=== PATIENT | male | born 1985 | race Caucasian/White ===

== ENCOUNTER 2017-09-18 14:54 | Emergency (ER) | payer SELFPAY ==
[2017-09-18 15:06] VITALS: BMI 33.3
--- NOTE | 2017-09-18 15:27 | C.PDOC ---
History Of Present Illness 32-year-old male, presents to the emergency department with complaints of a worsening rash around his neck for the past week. Patient notes swelling in both eyes for the past two-three days. Unknown sick contacts, Patient notes associated itching, and no relief with Claritin. DENIES NECKLACE USE OR KNOWN ALLERGEN CONTACT Time Seen by Provider: 09/18/17 15:17 Chief Complaint (Nursing): Abnormal Skin Integrity History Per: Patient History/Exam Limitations: no limitations Onset/Duration Of Symptoms: Days Current Symptoms Are (Timing): Still Present Past Medical History Reviewed: Historical Data, Nursing Documentation, Vital Signs Vital Signs: Last Vital Signs Temp 97.8 F 09/18/17 15:06 Pulse 97 H 09/18/17 15:06 Resp 20 09/18/17 15:06 BP 160/102 H 09/18/17 15:06 Pulse Ox 99 09/18/17 15:46 Family History: States: No Known Family Hx - Social History Hx Alcohol Use: Yes Hx Substance Use: No - Immunization History Hx Tetanus Toxoid Vaccination: No Hx Influenza Vaccination: No Hx Pneumococcal Vaccination: No Review Of Systems Except As Marked, All Systems Reviewed And Found Negative. Constitutional: Negative for: Fever, Chills Eyes: Positive for: Other (swelling) Cardiovascular: Negative for: Chest Pain Respiratory: Negative for: Shortness of Breath Gastrointestinal: Negative for: Nausea, Vomiting Skin: Positive for: Rash Neurological: Negative for: Weakness, Numbness Physical Exam - Physical Exam Appears: Non-toxic, No Acute Distress Skin: Warm, Dry, Other (hives with excoriation on neck) Head: Normacephalic Eye(s): bilateral: Other (swelling, angioedema) Nose: Normal Oral Mucosa: Moist Lips: Normal Appearing Neck: Normal ROM Chest: Symmetrical Cardiovascular: Rhythm Regular, No Murmur Respiratory: Normal Breath Sounds, No Accessory Muscle Use Extremity: Normal ROM Neurological/Psych: Oriented x3, Normal Speech ED Course And Treatment O2 Sat by Pulse Oximetry: 99 (on RA) Pulse Ox Interpretation: Normal Reevaluation Time: 17:17 Reassessment Condition: Improved Disposition Counseled Patient/Family Regarding: Studies Performed, Diagnosis, Need For Followup - Disposition Referrals: [facility] [Outside] [facility] [Outside] Disposition: HOME/ ROUTINE Disposition Time: 17:17 Condition: IMPROVED Prescriptions: DiphenhydrAMINE [Benadryl] 50 mg PO TID PRN #30 cap PRN Reason: Itching / Pruritus Famotidine [Pepcid AC] 10 mg PO QN #30 tablet predniSONE [Prednisone] 60 mg PO DAILY #12 tab Instructions: Urticaria (GEN) Forms: [facility] (Maltese), Work Excuse - Clinical Impression Clinical Impression: Urticaria, Angioedema - Scribe Statement The provider has reviewed the documentation as recorded by the Scribe (Angy Tyler) All medical record entries made by the Scribe were at my direction and personally dictated by me. I have reviewed the chart and agree that the record accurately reflects my personal performance of the history, physical exam, medical decision making, and the department course for this patient. I have also personally directed, reviewed, and agree with the discharge instructions and disposition.
[2017-09-18 17:23] VITALS: BP 133/80; PULSE 90; RESP 18; TEMP 98.1; O2SAT 98
== END 2017-09-18 17:30 | disposition home or self-care (01) ==
LOC: C.ER 14:54
DX: T78.3XXA Angioneurotic edema, initial encounter (principal)